=== PATIENT | male | born 1955 | race Asian ===

== ENCOUNTER 2017-01-02 22:42 | Observation (INO) | payer OTHER ==
[2017-01-02] MEDS ORDERED: SODIUM CHLORIDE 1,000 ML IV STA (23:08)
[2017-01-02] MEDS ORDERED: ONDANSETRON 4 MG/2 ML VIAL IVPB ONE (23:08)
[2017-01-02] MEDS ORDERED: HYDROmorphone HCL CARPU-JECT 1 MG/1 ML DISP.SYRIN IVPUSH ONE (23:08)
--- NOTE | 2017-01-02 23:08 | PDOC ---
[id number] is a 61 year old male with a past medical hx of hyperthyroidism, HTN, hypercholesterolemia, and diabetes who presents to the ED complaining of right flank pain radiating into his right groin for a half hour. The patient reports the pain is excruciating and he is having difficulty sitting still secondary to the pain. The patient is also complaining of urinary retention. The patient denies any fever, chills The patient denies any nausea, vomiting, diarrhea <Yuliya Huff - Last Filed: 01/03/17 01:11> <Sandy Killian - Last Filed: 01/14/17 17:09> - General Chief Complaint: Pain, Acute Stated Complaint: ABD PAIN Time Seen by Provider: 01/02/17 22:56 Past History <Yuliya uHff - Last Filed: 01/03/17 01:11> - Past Medical History Anemia: No Asthma: No Cancer: No CVA: No COPD: No CHF: No Dementia: No Diabetes: Yes GI Disorders: No Disorders: No HTN: Yes Hypercholesterolemia: Yes Liver Disease: No Suicide Attempt (Hx): No Thyroid Disease: Yes (HYPO) - Immunization History Immunization Up to Date: Yes - Psycho/Social/Smoking Cessation Hx Anxiety: No Suicidal Ideation: No Smoking Status: Yes Smoking History: Never smoked Have you smoked in the past 12 months: No Number of Cigarettes Smoked Daily: 0 If you are a former smoker, when did you quit?: 2005 Information on smoking cessation initiated: No Hx Alcohol Use: No Drug/Substance Use Hx: No Substance Use Type: None Hx Substance Use Treatment: No <Sandy Killian - Last Filed: 01/14/17 17:09> - Past Medical History Allergies/Adverse Reactions: Allergies Allergy/AdvReac Type Severity Reaction Status Date / Time No Known Allergies Allergy Verified 01/02/17 22:47 Home Medications: Ambulatory Orders Aspirin 81 mg PO DAILY #1 12/01/13 Glimepiride [Amaryl -] 4 mg PO DAILY@0700 #1 tablet 12/01/13 Carvedilol [Coreg -] 12.5 mg PO BID 08/02/14 Cholecalciferol (Vitamin D3) [D3-2000] 1,000 unit PO DAILY 08/02/14 Levothyroxine [Synthroid -] 50 mcg PO DAILY 08/02/14 Metformin HCl [Glucophage] 1,000 mg PO BID 08/02/14 Simvastatin [Zocor -] 20 mg PO HS 08/02/14 Budesonide/Formeterol Fumarate [SYMBICORT 160/4.5mcg -] 2 puff IH BID #1 inhaler 06/01/16 Tiotropium [place] [Spiriva] 1 puff IH DAILY #1 inh 06/01/16 Ibuprofen 600 mg PO Q8H #20 tablet 01/03/17 Oxycodone HCl/Acetaminophen [Oxycodone-Acetaminophen 5-325] 1 each PO Q4H #10 tablet MDD 6 01/03/17 Review of Systems - Review of Systems Able to Perform ROS?: Yes Comments:: 01/03/17 00:16 CONSTITUTIONAL: Absent: fever, chills, diaphoresis, generalized weakness, malaise, loss of appetite HEENT: Absent: rhinorrhea, nasal congestion, throat pain, throat swelling, difficulty swallowing, mouth swelling, ear pain, eye pain, visual Changes CARDIOVASCULAR: Absent: chest pain, syncope, palpitations, irregular heart rate, lightheadedness , peripheral edema RESPIRATORY: Absent: cough, shortness of breath, dyspnea with exertion, orthopnea, wheezing, stridor, hemoptysis GASTROINTESTINAL: Absent: abdominal pain, abdominal distension, nausea, vomiting, diarrhea, constipation, melena, hematochezia GENITOURINARY: +Right flank pain radiating into right groin, urinary retention. Absent: dysuria , frequency, urgency, hesitancy, hematuria, genital pain MUSCULOSKELETAL: Absent: myalgia, arthralgia, joint swelling SKIN: Absent: rash, itching, pallor HEMATOLOGIC/IMMUNOLOGIC: Absent: easy bleeding, easy bruising, lymphadenopathy, frequent infections ENDOCRINE: Absent: unexplained weight gain, unexplained weight loss, heat intolerance, cold intolerance NEUROLOGIC: Absent: headache, focal weakness or paresthesias, dizziness, unsteady gait, seizure, mental status changes, bladder or bowel incontinence PSYCHIATRIC: Absent: anxiety, depression, suicidal or homicidal ideation, hallucinations. <Yuliya Huff - Last Filed: 01/03/17 01:11> *Physical Exam - Vital Signs Last Vital Signs Temp Pulse Resp BP Pulse Ox 77 14 161/98 97 01/02/17 22:47 01/02/17 22:47 01/02/17 22:47 01/02/17 22:47 - Physical Exam Comments: 01/03/17 01:11 GENERAL: +Mild distress, unable to sit still. Well developed, well nourished. Awake and alert. HEENT: Normocephalic, atraumatic. PERRLA, EOMI. No conjunctival pallor. Sclera are non- icteric. Moist mucous membranes. Oropharynx is clear. NECK: Supple. Full ROM. No JVD. Carotid pulses 2+ and symmetric, without bruits. No thyromegaly. No lymphadenopathy. CARDIOVASCULAR: Regular rate and rhythm. No murmurs, rubs, or gallops. Distal pulses are 2+ and symmetric. PULMONARY: No evidence of respiratory distress. Lungs clear to auscultation bilaterally. No wheezing, rales or rhonchi. ABDOMINAL: Soft. Non-tender. Non-distended. No rebound or guarding. No organomegaly. Normoactive bowel sounds. MUSCULOSKELETAL Normal range of motion at all joints. No bony deformities or tenderness. No CVA tenderness. EXTREMITIES: No cyanosis. No clubbing. No edema. No calf tenderness. SKIN: Warm and dry. Normal capillary refill. No rashes. No jaundice. NEUROLOGICAL: Alert, awake, appropriate. Cranial nerves 2-12 intact. No deficits to light touch and temperature in face, upper extremities and lower extremities. No motor deficits in the in face, upper extremities and lower extremities. Normoreflexic in the upper and lower extremities. Normal speech. Toes are down-going bilaterally. Gait is normal without ataxia. PSYCHIATRIC: Cooperative. Good eye contact. Appropriate mood and affect. <Yuliya Huff - Last Filed: 01/03/17 01:11> - Vital Signs Last Vital Signs Temp Pulse Resp BP Pulse Ox 77 14 161/98 97 01/02/17 22:47 01/02/17 22:47 01/02/17 22:47 01/02/17 22:47 <Sandy Killian - Last Filed: 01/14/17 17:09> ED Treatment Course - LABORATORY CBC & Chemistry Diagram: 01/02/17 23:30 01/02/17 23:30 - ADDITIONAL ORDERS Additional order review: Laboratory Results 01/02/17 23:30 Sodium 137 Potassium 4.3 Chloride 96 L Carbon Dioxide 29 Anion Gap 12 BUN 19 H D Creatinine 1.1 D Creat Clearance w eGFR > 60 Random Glucose 223 H D Calcium 9.0 Total Bilirubin 0.5 D AST 21 D ALT 26 D Alkaline Phosphatase 87 Total Protein 7.5 Albumin 3.8 Lipase 280 01/02/17 23:30 RBC 4.40 MCV 96.0 MCHC 34.2 RDW 13.6 MPV 7.9 Neutrophils % 64.4 D Lymphocytes % 22.8 D Monocytes % 10.0 D Eosinophils % 1.8 D Basophils % 1.0 D - Medications Given in the ED: ED Medications Discontinued Medications Generic Name Dose Route Start Last Admin Trade Name Freq PRN Reason Stop Dose Admin Hydromorphone HCl 1 mg 01/02/17 23:08 01/02/17 23:43 Dilaudid Injection - IVPUSH 01/02/17 23:09 1 mg ONCE ONE Administration Sodium Chloride 1,000 mls @ 1,000 mls/hr 01/02/17 23:08 01/02/17 23:49 Normal Saline - IV 01/03/17 00:07 1,000 mls/hr ASDIR STA Administration Ondansetron HCl 4 mg 01/02/17 23:08 01/02/17 23:43 Zofran Injection IVPB 01/02/17 23:09 4 mg ONCE ONE Administration <Yuliya Huff - Last Filed: 01/03/17 01:11> - LABORATORY CBC & Chemistry Diagram: 01/03/17 08:24 01/03/17 08:24 <Sandy Killian - Last Filed: 01/14/17 17:09> *DC/Admit/Observation/Transfer - Attestations Scribe Attestion: 01/03/17 00:17 Documentation prepared by Yuliya Huff, acting as medical record retrieval specialist for Sandy Killian MD/DO. <Yuliya Huff - Last Filed: 01/03/17 01:11> <Sandy Killian - Last Filed: 01/14/17 17:09> Diagnosis at time of Disposition: Renal colic on right side, Hydronephrosis - Discharge Dispostion Disposition: HOME Condition at time of disposition: Stable - Prescriptions - Referrals
[2017-01-02] MEDS ORDERED: HYDROmorphone HCL CARPU-JECT 1 MG/1 ML DISP.SYRIN ONE (23:37)
[2017-01-02] MEDS ORDERED: ONDANSETRON 4 MG/2 ML VIAL ONE (23:41)
[2017-01-02 23:43] LABS: EOSINOPHIL 1.8 % (0-4.5); MCH 32.8 pg (25.7-33.7); MCHC 34.2 g/dl (32.0-35.9); MEAN PLT VOLUME 7.9 fl (7.5-11.1); NEUTROPHILS 64.4 % (42.8-82.8); PLATELET COUNT 278 K/MM3 (134-434); RDW 13.6 % (11.9-15.9); WHITE BLOOD COUNT 15.4 K/mm3 (4.0-10.0)
[2017-01-03 00:09] LABS: ALBUMIN 3.8 g/dl (3.4-5.0); ANION GAP 12 (8-16); CO2 29 mmol/L (21-32); CREATININE 1.1 mg/dL (0.7-1.3); GLUCOSE,RANDOM 223 mg/dL (74-106); SGPT/ALT 26 U/L (12-78)
[2017-01-03 00:11] LABS: ALK PHOS 87 U/L (45-117); BILIRUBIN,TOTAL 0.5 mg/dL (0.2-1.0); SGOT/AST 21 U/L (15-37); TOT PROT 7.5 g/dl (6.4-8.2)
[2017-01-03 04:25] LABS: PH,URINE 5.5 (5.0-8.0); URINE APPEARANCE CLEAR; URINE BILIRUBIN NEGATIVE (NEGATIVE); URINE BLOOD 3+ (NEGATIVE); URINE COLOR LT. YELLOW; URINE GLUCOSE (UA) 1+ (NEGATIVE); URINE KETONE NEGATIVE (NEGATIVE); URINE LEUK ESTERASE NEGATIVE (NEGATIVE); URINE NITRITE NEGATIVE (NEGATIVE); URINE PROTEIN NEGATIVE (NEGATIVE); URINE UROBILINOGEN 0.2 E.U/dl E.U./dl (0.2-1.0)
--- NOTE | 2017-01-03 05:01 | PDOC ---
*Physical Exam - Vital Signs Last Vital Signs Temp Pulse Resp BP Pulse Ox 77 14 161/98 97 01/02/17 22:47 01/02/17 22:47 01/02/17 22:47 01/02/17 22:47 <Kapil Reyna - Last Filed: 01/03/17 05:00> - Vital Signs Last Vital Signs Temp Pulse Resp BP Pulse Ox 77 14 161/98 97 01/02/17 22:47 01/02/17 22:47 01/02/17 22:47 01/02/17 22:47 <Melody Nicolas - Last Filed: 01/03/17 05:32> Heart Score/ECG Review - ECG Impressions Comment:: 01/03/17 05:32 NSR @73bpm Normal ECG <Melody Nicolas - Last Filed: 01/03/17 05:32> ED Treatment Course - LABORATORY CBC & Chemistry Diagram: 01/02/17 23:30 01/02/17 23:30 - ADDITIONAL ORDERS Additional order review: Laboratory Results 01/03/17 01/02/17 03:55 23:30 Sodium 137 Potassium 4.3 Chloride 96 L Carbon Dioxide 29 Anion Gap 12 BUN 19 H D Creatinine 1.1 D Creat Clearance w eGFR > 60 Random Glucose 223 H D Calcium 9.0 Total Bilirubin 0.5 D AST 21 D ALT 26 D Alkaline Phosphatase 87 Total Protein 7.5 Albumin 3.8 Lipase 280 Urine Color Lt. yellow Urine Appearance Clear Urine pH 5.5 Ur Specific [place] 1.010 Urine Protein Negative Urine Glucose (UA) 1+ H Urine Ketones Negative Urine Blood 3+ H Urine Nitrite Negative Urine Bilirubin Negative Urine Urobilinogen 0.2 e.u/dl Ur Leukocyte Esterase Negative 01/02/17 23:30 RBC 4.40 MCV 96.0 MCHC 34.2 RDW 13.6 MPV 7.9 Neutrophils % 64.4 D Lymphocytes % 22.8 D Monocytes % 10.0 D Eosinophils % 1.8 D Basophils % 1.0 D - Medications Given in the ED: ED Medications Discontinued Medications Generic Name Dose Route Start Last Admin Trade Name Freq PRN Reason Stop Dose Admin Hydromorphone HCl 1 mg 01/02/17 23:08 01/02/17 23:43 Dilaudid Injection - IVPUSH 01/02/17 23:09 1 mg ONCE ONE Administration Sodium Chloride 1,000 mls @ 1,000 mls/hr 01/02/17 23:08 01/02/17 23:49 Normal Saline - IV 01/03/17 00:07 1,000 mls/hr ASDIR STA Administration Ondansetron HCl 4 mg 01/02/17 23:08 01/02/17 23:43 Zofran Injection IVPB 01/02/17 23:09 4 mg ONCE ONE Administration <Kapil Reyna - Last Filed: 01/03/17 05:00> - LABORATORY CBC & Chemistry Diagram: 01/02/17 23:30 01/02/17 23:30 - ADDITIONAL ORDERS Additional order review: Laboratory Results 01/03/17 01/02/17 03:55 23:30 Sodium 137 Potassium 4.3 Chloride 96 L Carbon Dioxide 29 Anion Gap 12 BUN 19 H D Creatinine 1.1 D Creat Clearance w eGFR > 60 Random Glucose 223 H D Calcium 9.0 Total Bilirubin 0.5 D AST 21 D ALT 26 D Alkaline Phosphatase 87 Total Protein 7.5 Albumin 3.8 Lipase 280 Urine Color Lt. yellow Urine Appearance Clear Urine pH 5.5 Ur Specific [place] 1.010 Urine Protein Negative Urine Glucose (UA) 1+ H Urine Ketones Negative Urine Blood 3+ H Urine Nitrite Negative Urine Bilirubin Negative Urine Urobilinogen 0.2 e.u/dl Ur Leukocyte Esterase Negative 01/02/17 23:30 RBC 4.40 MCV 96.0 MCHC 34.2 RDW 13.6 MPV 7.9 Neutrophils % 64.4 D Lymphocytes % 22.8 D Monocytes % 10.0 D Eosinophils % 1.8 D Basophils % 1.0 D - RADIOLOGY Radiograph Interpretation: 01/03/17 05:03 EXAM: CT abdomen and pelvis with contrast Reviewed by Imaging bonsai culturist: FINDINGS: Lung bases are clear. The visualized cardiac chambers are normal size and configuration. There is mild right hydronephrosis with perinephric and perirenal inflammation but no obstructing stone is identified. Small intraparenchymal right renal stone is noted. Normal liver, gallbladder, pancreas, spleen, adrenal glands and left kidney. The stomach and abdominal small and large bowel are normal. There is no aortic aneurysm. There is no significant retroperitoneal lymphadenopathy. The pelvic small and large bowel are normal. The appendix is normal s. The urinary bladder is collapsed but there is a 4 mm posterior calcification, possibly intraluminal representing a recently passed stone. The prostate gland is normal. No pelvic free fluid is identified. There is no significant pelvic lymphadenopathy. Small fat containing left inguinal hernia is noted. IMPRESSION: Mild right hydronephrosis and perinephric inflammation may be due to a recently passed 4 mm stone in the bladder. Superimposed infection is not excluded. - Medications Given in the ED: ED Medications Discontinued Medications Generic Name Dose Route Start Last Admin Trade Name [place] PRN Reason Stop Dose Admin Hydromorphone HCl 1 mg 01/02/17 23:08 01/02/17 23:43 Dilaudid Injection - IVPUSH 01/02/17 23:09 1 mg ONCE ONE Administration Sodium Chloride 1,000 mls @ 1,000 mls/hr 01/02/17 23:08 01/02/17 23:49 Normal Saline - IV 01/03/17 00:07 1,000 mls/hr ASDIR STA Administration Ondansetron HCl 4 mg 01/02/17 23:08 01/02/17 23:43 Zofran Injection IVPB 01/02/17 23:09 4 mg ONCE ONE Administration <Melody Nicolas - Last Filed: 01/03/17 05:32> *DC/Admit/Observation/Transfer - Discharge Dispostion Admit: Yes <Kapil Reyna - Last Filed: 01/03/17 05:00> <Melody Nicolas - Last Filed: 01/03/17 05:32> Diagnosis at time of Disposition: Renal colic on right side, Hydronephrosis - Referrals Referrals: Myrtle River MD [Primary Care Provider] - - Patient Instructions - Post Discharge Activity
--- NOTE | 2017-01-03 05:47 | HP ---
CHIEF COMPLAINT: " Severe Back pain" PCP: Dr Deondre Crowder (Certified Hyperbaric Technologist) HISTORY OF PRESENT ILLNESS: Patient is a 61-year-old male accompanied by his son presented to the ED with the chief complaints of severe back pain. As per the patient, he started having dysuria yesterday but didn't have abdominal or back pain. Last evening at around 7pm, he started having right sided flank pain, radiating towards the right groin, 6/10 in intensity, stabbing in nature. Pain persisted for 2 hours and it was tolerable. But pain started getting worse to 20/10 in intensity, several episodes of non projectile, non bilious vomiting, containing mainly food particles. Hence, came in the ED immediately. Patient mentions he did notice red urine. He had similar episode of kidney stones in the past but the pain was not so severe requiring hospitalization. Denies fever, chills, rigors or sweating. Bowel habit normal. 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 Smoking: Quit 18 years ago, smoked for 20 years 1 pack a day Alcohol: Occasional Drugs: Denies Allergies No Known Allergies Allergy (Verified 01/02/17 22:47) HOME MEDICATIONS: Home Medications Medication Instructions Recorded Aspirin 81 mg PO DAILY #1 12/01/13 Glimepiride [Amaryl -] 4 mg PO DAILY@0700 #1 tablet 12/01/13 Carvedilol [Coreg -] 12.5 mg PO BID 08/02/14 Cholecalciferol (Vitamin D3) 1,000 unit PO DAILY 08/02/14 [D3-2000] Levothyroxine [Synthroid -] 50 mcg PO DAILY 08/02/14 Metformin HCl [Glucophage] 1,000 mg PO BID 08/02/14 Simvastatin [Zocor -] 20 mg PO HS 08/02/14 Budesonide/Formeterol Fumarate 2 puff IH BID #1 inhaler 06/01/16 [SYMBICORT 160/4.5mcg -] Tiotropium [place] [Spiriva] 1 puff IH DAILY #1 inh 06/01/16 REVIEW OF SYSTEMS CONSTITUTIONAL: Absent: fever, chills, diaphoresis, generalized weakness, malaise, loss of appetite, weight change HEENT: Absent: rhinorrhea, nasal congestion, throat pain, throat swelling, difficulty swallowing, mouth swelling, ear pain, eye pain, visual changes CARDIOVASCULAR: Absent: chest pain, syncope, palpitations, irregular heart rate, lightheadedness , peripheral edema RESPIRATORY: Absent: cough, shortness of breath, dyspnea with exertion, orthopnea, wheezing, stridor, hemoptysis GASTROINTESTINAL: Absent: abdominal pain, abdominal distension, nausea, vomiting, diarrhea, constipation, melena, hematochezia GENITOURINARY: Present: Dysuria, hematuria, flank pain, groin pain Absent: frequency, urgency, hesitancy, hematuria, genital pain MUSCULOSKELETAL: Absent: myalgia, arthralgia, joint swelling, back pain, neck pain SKIN: Absent: rash, itching, pallor HEMATOLOGIC/IMMUNOLOGIC: Absent: easy bleeding, easy bruising, lymphadenopathy, frequent infections ENDOCRINE: Absent: unexplained weight gain, unexplained weight loss, heat intolerance, cold intolerance NEUROLOGIC: Absent: headache, focal weakness or paresthesias, dizziness, unsteady gait, seizure, mental status changes, bladder or bowel incontinence PSYCHIATRIC: Absent: anxiety, depression, suicidal or homicidal ideation, hallucinations. PHYSICAL EXAMINATION Vital Signs - 24 hr 01/02/17 22:47 Pulse Rate 77 Respiratory 14 Rate Blood Pressure 161/98 O2 Sat by Pulse 97 Oximetry (%) GENERAL: Moderately built male, Awake, alert, and fully oriented, in no acute distress. HEAD: Normal with no signs of trauma. EYES: EOM intact, no pallor or icterus. EARS, NOSE, THROAT: Ears normal,. Moist mucous membranes. NECK: Normal range of motion, supple without lymphadenopathy, JVD, or masses. LUNGS: Breath sounds equal, clear to auscultation bilaterally. No wheezes, and no crackles. No accessory muscle use. HEART: Regular rate and rhythm, normal S1 and S2 without murmur, rub or gallop. ABDOMEN: Soft, nontender, not distended, normoactive bowel sounds, no guarding, no rebound, no masses. No hepatomegaly or splenomegaly. MUSCULOSKELETAL: Normal range of motion at all joints. No bony deformities or tenderness. No CVA tenderness. UPPER EXTREMITIES: 2+ pulses, warm, well-perfused. No cyanosis. No clubbing. No peripheral edema. LOWER EXTREMITIES: 2+ pulses, warm, well-perfused. No calf tenderness. No peripheral edema. NEUROLOGICAL: Cranial nerves II-XII intact. Normal speech. Normal gait. PSYCHIATRIC: Cooperative. Good eye contact. Appropriate mood and affect. SKIN: Warm, dry, normal turgor, no rashes or lesions noted, normal capillary refill. Laboratory Results - last 24 hr 01/02/17 01/02/17 01/03/17 23:30 23:30 03:55 WBC 15.4 H D RBC 4.40 Hgb 14.4 Hct 42.2 MCV 96.0 MCHC 34.2 RDW 13.6 Plt Count 278 MPV 7.9 Neutrophils % 64.4 D Lymphocytes % 22.8 D Monocytes % 10.0 D Eosinophils % 1.8 D Basophils % 1.0 D Sodium 137 Potassium 4.3 Chloride 96 L Carbon Dioxide 29 Anion Gap 12 BUN 19 H D Creatinine 1.1 D Creat Clearance w eGFR > 60 Random Glucose 223 H D Calcium 9.0 Total Bilirubin 0.5 D AST 21 D ALT 26 D Alkaline Phosphatase 87 Total Protein 7.5 Albumin 3.8 Lipase 280 Urine Color Lt. yellow Urine Appearance Clear Urine pH 5.5 Ur Specific [place] 1.010 Urine Protein Negative Urine Glucose (UA) 1+ H Urine Ketones Negative Urine Blood 3+ H Urine Nitrite Negative Urine Bilirubin Negative Urine Urobilinogen 0.2 e.u/dl Ur Leukocyte Esterase Negative ASSESSMENT/PLAN: Patient is a 61-year-old male with significant past medical history of HTN, HLD , NIDDM, diverticulitis, and hypothyroidism, kidney stones accompanied by his son presented to the ED with the chief complaints of severe back pain. # Renal colic Patient presented with excruciating flank pain radiating towards the groin since several hours associated with nausea and several episodes of vomiting On arrival, patient was Afebrile, hemodynamically stable, leukocytosis of 15.[address] scan showed 4mm stone in the bladder, detailed report as mentioned above In the ED, patient received IV Fluids, IV Dilaudid Placed in Med-Surg for observation IV NS @ 100mls/hr Pain control with IV Ketorolac IV Zofran PRN No antibiotics needed at this time Repeat CBC and CMP. # Diabetes Mellitus Finger stick glucose monitoring Insulin sliding scale # Hypothyroidism Continue Levothyroxine # Hyperlipidemia Continue Simavastatin # Hypetension Continue Carvedilol # FEN IV NS @ 100mls/hr Electrolytes to be repeated Diabetic diet # Prophylaxis For DVT: Patient ambulating and patient on observation For GI: Not indicated # Code Status: Full Code # Dispo: Placed on observation. Duration of stay 1-2 days. Illness, Investigation and Plan of care explained to the patient. He verbalized understanding. Case discussed with Dr. Boyer. Visit type - Emergency Visit Emergency Visit: Yes ED Registration Date: 01/03/17 Care time: The patient presented to the Emergency Department on the above date and was hospitalized for further evaluation of their emergent condition. - New Patient This patient is new to me today: Yes Date on this admission: 01/03/17 - Critical Care Critical Care patient: No
[2017-01-03] MEDS ORDERED: KETOROLAC TROMETHAMINE 30 MG/1 ML VIAL IVPUSH PRN (05:49)
--- NOTE | 2017-01-03 05:55 | PN ---
<SoniaradhaEdwin - Last Filed: 01/03/17 06:39> Teaching Attending Note ATTENDING PHYSICIAN STATEMENT I saw and evaluated the patient. I reviewed the resident's note and discussed the case with the resident. I agree with the resident's findings and plan as documented. SUBJECTIVE: The patient is a 61 year old male with a past medical history of hyperthyroidism , HTN, hypercholesterolemia, kidney stones and diabetes who presented to the emergency department for further evaluation of right flank pain radiating into his right groin since yesterday. The patient reported associated urinary retention. The patient noted that he has had kidney stones 2 times before most recently 2-3 years ago. The patient denied any fever, chills, nausea, vomiting, diarrhea OBJECTIVE: Vital Signs: Last Vital Signs Temp Pulse Resp BP Pulse Ox 77 14 161/98 97 01/02/17 22:47 01/02/17 22:47 01/02/17 22:47 01/02/17 22:47 Physical Exam: GENERAL: Awake, alert, and fully oriented, in no acute distress HEENT: Atraumatic. PERRLA, EOMI. Moist mucosa. No JVD LUNGS: No distress, speaks full sentences, clear to auscultation bilaterally HEART: Regular rate and rhythm, normal S1 and S2, no murmurs, rubs or gallops, peripheral pulses normal and equal bilaterally. ABDOMEN: Soft, nontender, normoactive bowel sounds. No guarding, no rebound. No masses EXTREMITIES: Normal inspection, Normal range of motion, no edema. No clubbing or cyanosis. NEUROLOGICAL: Cranial nerves II through XII grossly intact. Normal speech, normal gait, no focal sensorimotor deficits SKIN: Warm, Dry, normal turgor, no rashes or lesions noted. Labs: CBCD WBC 15.4 K/mm3 (4.0-10.0) H D 01/02/17 23:30 RBC 4.40 M/mm3 (4.00-5.60) 01/02/17 23:30 Hgb 14.4 GM/dL (11.7-16.9) 01/02/17 23:30 Hct 42.2 % (35.4-49) 01/02/17 23:30 MCV 96.0 fl (80-96) 01/02/17 23:30 MCHC 34.2 g/dl (32.0-35.9) 01/02/17 23:30 RDW 13.6 % (11.9-15.9) 01/02/17 23:30 Plt Count 278 K/MM3 (134-434) 01/02/17 23:30 MPV 7.9 fl (7.5-11.1) 01/02/17 23:30 CMP Sodium 137 mmol/L (136-145) 01/02/17 23:30 Potassium 4.3 mmol/L (3.5-5.1) 01/02/17 23:30 Chloride 96 mmol/L (98-107) L 01/02/17 23:30 Carbon Dioxide 29 mmol/L (21-32) 01/02/17 23:30 Anion Gap 12 (8-16) 01/02/17 23:30 BUN 19 mg/dL (7-18) H D 01/02/17 23:30 Creatinine 1.1 mg/dL (0.7-1.3) D 01/02/17 23:30 Creat Clearance w eGFR > 60 (>60) 01/02/17 23:30 Calcium 9.0 mg/dL (8.5-10.1) 01/02/17 23:30 Total Bilirubin 0.5 mg/dL (0.2-1.0) D 01/02/17 23:30 AST 21 U/L (15-37) D 01/02/17 23:30 ALT 26 U/L (12-78) D 01/02/17 23:30 Alkaline Phosphatase 87 U/L (45-117) 01/02/17 23:30 Total Protein 7.5 g/dl (6.4-8.2) 01/02/17 23:30 Albumin 3.8 g/dl (3.4-5.0) 01/02/17 23:30 Imaging: EXAM: CT abdomen and pelvis with contrast IMAGES: 502 INDICATION: Right flank pain with urinary retention DATE OF SERVICE: 2017-01-03 02:32:35.0 COMPARISON : B. FINDINGS: Lung bases are clear. The visualized cardiac chambers are normal size and configuration. There is mild right hydronephrosis with perinephric and perirenal inflammation but no obstructing stone is identified. Small intraparenchymal right renal stone is noted. Normal liver, gallbladder, pancreas, spleen, adrenal glands and left kidney. The stomach and abdominal small and large bowel are normal. There is no aortic aneurysm. There is no significant retroperitoneal lymphadenopathy. The pelvic small and large bowel are normal. The appendix is normal s. The urinary bladder is collapsed but there is a 4 mm posterior calcification, possibly intraluminal representing a recently passed stone. The prostate gland is normal. No pelvic free fluid is identified. There is no significant pelvic lymphadenopathy. Small fat containing left inguinal hernia is noted. IMPRESSION: Mild right hydronephrosis and perinephric inflammation may be due to a recently passed 4 mm stone in the bladder. Superimposed infection is not excluded. THIS DOCUMENT HAS BEEN ELECTRONICALLY SIGNED Joshua Rodriguez MD ASSESSMENT AND PLAN : The patient is a 61 year old male with a past medical history of hyperthyroidism , HTN, hypercholesterolemia, kidney stones, and diabetes who presented to the emergency department for evaluation of right flank pain radiating into his right groin since yesterday. 1. Renal Colic -4 mm stone noted in bladder -IVF -Toradol Admit to observation. Documentation prepared by Edwin Traylor, acting as medical aide for Dr. Fab Boyer MD. <Fab Boyer - Last Filed: 01/03/17 06:46> Teaching Attending Note Name of Resident: Piedad Miller ATTENDING PHYSICIAN STATEMENT I saw and evaluated the patient. I reviewed the resident's note and discussed the case with the resident. I agree with the resident's findings and plan as documented.
[2017-01-03] MEDS: SODIUM CHLORIDE 1,000 ML IV SCH ×2 (06:15→13:11)
[2017-01-03] MEDS ORDERED: ONDANSETRON 4 MG/2 ML VIAL IVPB PRN (06:25)
[2017-01-03 06:35] LABS: URINE MUCUS RARE; URINE RBC 132 /hpf (0-3); URINE WBC 2 /hpf (3-5)
[2017-01-03] MEDS: INSULIN SLIDING SCALE (NOVOLOG) 1 VIAL SQ SCH ×3 (08:10→17:38)
[2017-01-03] MEDS ORDERED: INSULIN REGULAR HUMAN 100 UNITS/ML *VIAL ONE (08:13)
[2017-01-03 08:38] LABS: BASOPHIL 0.8 % (0-2.0); EOSINOPHIL 1.2 % (0-4.5); MCH 32.9 pg (25.7-33.7); MCHC 34.1 g/dl (32.0-35.9); MEAN CELL VOLUME 96.5 fl (80-96); MEAN PLT VOLUME 7.3 fl (7.5-11.1); NEUTROPHILS 55.5 % (42.8-82.8); PLATELET COUNT 230 K/MM3 (134-434); RDW 13.5 % (11.9-15.9)
[2017-01-03] MEDS ORDERED: LEVOTHYROXINE NA 50 MCG TABLET (FP) PO SCH (09:00)
[2017-01-03 09:08] LABS: ALBUMIN 3.6 g/dl (3.4-5.0); ANION GAP 7 (8-16); BILIRUBIN,TOTAL 0.6 mg/dL (0.2-1.0); CALCIUM 8.3 mg/dL (8.5-10.1); CO2 31 mmol/L (21-32); CREATININE 0.9 mg/dL (0.7-1.3); GLUCOSE,RANDOM 128 mg/dL (74-106)
[2017-01-03 09:09] LABS: SGOT/AST 18 U/L (15-37); SGPT/ALT 29 U/L (12-78)
[2017-01-03 09:10] LABS: ALK PHOS 77 U/L (45-117); TOT PROT 7.2 g/dl (6.4-8.2)
[2017-01-03] MEDS ORDERED: TIOTROPIUM BROMIDE 18 MCG/INH (DEVICE W/ 5 CAPSULES) IH SCH (10:00)
[2017-01-03] MEDS ORDERED: CHOLECALCIFEROL (VITAMIN D3) 1,000 UNIT TABLET (FP) PO SCH (10:00)
[2017-01-03] MEDS ORDERED: ASPIRIN 81 MG CHEWABLE TABLETS PO SCH (10:00)
[2017-01-03] MEDS ORDERED: BUDESONIDE/FORMETEROL FUMARATE 160/4.5 mcg INHALER IH SCH (10:00)
[2017-01-03] MEDS ORDERED: CARVEDILOL 12.5 MG TABLET (FP) PO SCH (10:00)
[2017-01-03] MEDS ORDERED: PT OWN MED DRAWER 7, Y5N ONE (10:25)
[2017-01-03 10:37] VITALS: BMI 29.9
--- NOTE | 2017-01-03 13:21 | EKG ---
Test Reason : Blood Pressure : / mmHG Vent. Rate : 073 BPM Atrial Rate : 073 BPM P-R Int : 168 ms QRS Dur : 088 ms QT Int : 394 ms P-R-T Axes : 058 052 052 degrees QTc Int : 434 ms NORMAL SINUS RHYTHM NORMAL ECG WHEN COMPARED WITH ECG OF 24-MAY-2016 10:03, PREMATURE ATRIAL COMPLEXES ARE NO LONGER PRESENT VENT. RATE HAS DECREASED BY 46 BPM NON-SPECIFIC CHANGE IN ST SEGMENT IN LATERAL LEADS Confirmed by YEFRI AMOS MD ([id number]) on 01/03/2017 1:20:53 PM Referred By: Confirmed By:YEFRI AMOS MD
[2017-01-03] MEDS ORDERED: TAMSULOSIN HCL 0.4 MG CAP.ER.24H (FP) PO ONE (15:06)
--- NOTE | 2017-01-03 15:22 | PN ---
Physical Exam: SUBJECTIVE: Patient seen and examined. C/o mild pain to right groin. No nausea or vomiting. OBJECTIVE: Vital Signs - 24 hr 3 01/02/17 01/03/17 01/03/17 22:47 06:38 07:05 Temperature Pulse Rate 77 Pulse Rate [ 75 Right Radial] Respiratory 14 18 Rate Blood Pressure 161/98 Blood Pressure 116/58 [Right Arm] O2 Sat by Pulse 97 98 95 Oximetry (%) 3 01/03/17 01/03/17 01/03/17 08:00 08:03 13:38 Temperature 97.5 F L 97.9 F Pulse Rate 64 68 Pulse Rate [ 66 Right Radial] Respiratory 20 18 20 Rate Blood Pressure 117/75 121/73 Blood Pressure 109/55 [Right Arm] O2 Sat by Pulse 95 Oximetry (%) GENERAL: The patient is awake, alert, and fully oriented, in no acute distress. HEAD: Normal with no signs of trauma. EYES: PERRL, extraocular movements intact, sclera anicteric, conjunctiva clear. No ptosis. ENT: Ears normal, nares patent, oropharynx clear without exudates, moist mucous membranes. NECK: Trachea midline, full range of motion, supple. LUNGS: Breath sounds equal, clear to auscultation bilaterally, no wheezes, no crackles, no accessory muscle use. HEART: Regular rate and rhythm, S1, S2 without murmur, rub or gallop. ABDOMEN: Soft, nondistended, normoactive bowel sounds, no guarding, no rebound, no hepatosplenomegaly, no masses. mild tenderness RLQ, groin area. Mild right CVA tenderness EXTREMITIES: 2+ pulses, warm, well-perfused, no edema. NEUROLOGICAL: Cranial nerves II through XII grossly intact. Normal speech, gait not observed. PSYCH: Normal mood, normal affect. SKIN: Warm, dry, normal turgor, no rashes or lesions noted Laboratory Results - last 24 hr 3 01/03/17 01/03/17 01/03/17 08:09 08:24 08:24 WBC 10.0 D RBC 4.39 Hgb 14.4 Hct 42.3 MCV 96.5 H MCHC 34.1 RDW 13.5 Plt Count 230 MPV 7.3 L Neutrophils % 55.5 Lymphocytes % 31.6 D Monocytes % 10.9 H Eosinophils % 1.2 Basophils % 0.8 Sodium 139 Potassium 4.0 Chloride 101 Carbon Dioxide 31 Anion Gap 7 L BUN 13 D Creatinine 0.9 Creat Clearance w eGFR > 60 POC Glucometer [phone] Random Glucose 128 H D Calcium 8.3 L Total Bilirubin 0.6 AST 18 ALT 29 Alkaline Phosphatase 77 Total Protein 7.2 Albumin 3.6 Active Medications 3 Generic Name Dose Route Start Last Admin Trade Name Freq PRN Reason Stop Dose Admin Aspirin 81 mg 01/03/17 10:00 01/03/17 10:29 Asa - PO 81 mg DAILY OLGA Administration Atorvastatin Calcium 10 mg 01/03/17 22:00 Lipitor - PO HS OLGA Budesonide/Formoterol Fumarate 2 puff 01/03/17 10:00 01/03/17 10:30 Symbicort 160/4.5mcg - IH 2 puff BID OLGA Administration Carvedilol 12.5 mg 01/03/17 10:00 01/03/17 10:29 Coreg - PO 12.5 mg BID OLGA Administration Cholecalciferol 1,000 unit 01/03/17 10:00 01/03/17 10:29 Vitamin D3 - PO 1,000 unit DAILY OLGA Administration Sodium Chloride 1,000 mls @ 100 mls/hr 01/03/17 06:00 01/03/17 13:11 Normal Saline - IV 100 mls/hr ASDIR OLGA Administration Insulin Aspart 1 vial 01/03/17 07:00 01/03/17 12:12 Novolog Vial Sliding Scale - SQ Not Given ACHS [facility] Protocol Ketorolac Tromethamine 30 mg 01/03/17 05:49 01/03/17 06:15 Toradol Injection - IVPUSH 01/08/17 05:48 30 mg Q6H PRN Administration PAIN Levothyroxine Sodium 50 mcg 01/03/17 09:00 01/03/17 10:29 Synthroid - PO 50 mcg DAILY@0700 OLGA Administration Ondansetron HCl 4 mg 01/03/17 06:25 Zofran Injection IVPB Q4H PRN NAUSEA AND/OR VOMITING Tiotropium [place] 1 puff 01/03/17 10:00 01/03/17 10:30 Spiriva - IH 1 puff DAILY OLGA Administration ASSESSMENT/PLAN: 61yM with PMH TIA, HTN, HLD, NIDDM, diverticulitis, hypothyroidism, Kidney stones presented with severe right back pain radiating to groin and RLQ. Pt with 4mm stone in bladder on CT scan. Admitted for observation. Renal colic - pain significantly improved - stone likely passed into bladder. No stone observed in urine / hunt - remove FC for voiding trial - strain all urine Urinary retention - flomax 0.4mg x 1 - will remove hunt cath for voiding trial, if able to void and pain ok, may be DC home with O/P urology f/u - if unable to void, will replace FC and obtain urology consult inpatient HTN - cont home carvedilol. BP well controlled. Hyperlipidemia - home zocor changed to formulary lipitor NIDDM - home oral hypoglycemics on hold - cont novolog SS and BGM hypothyroidism - cont synthroid FEN - d/c IVF, tolerating po - BMP stable, repeat in am if still here - diabetic diet Dispo: pt continues to require inpatient observation. Visit type - Emergency Visit Emergency Visit: Yes ED Registration Date: 01/03/17 Care time: The patient presented to the Emergency Department on the above date and was hospitalized for further evaluation of their emergent condition. - New Patient This patient is new to me today: Yes Date on this admission: 01/03/17 - Critical Care Critical Care patient: No - Discharge Referral Referred to [facility] Med P.C.: No
[2017-01-03 17:42] VITALS: BP 120/64; PULSE 72; TEMP 98.2
[2017-01-03] MEDS ORDERED: ATORVASTATIN CA 10 MG TABLET (FP) PO SCH (22:00)
--- NOTE | 2017-01-08 23:44 | DS ---
Physical Exam: SUBJECTIVE: Patient seen and examined; see progress note for 01/03/17. reports feeling much better. Nurse reports pt voided 400cc. Pt feeling better, pain improved. LABS Laboratory Tests 3 01/02/17 01/02/17 01/03/17 23:30 23:30 03:55 WBC 15.4 H D RBC 4.40 Hgb 14.4 Hct 42.2 MCV 96.0 MCHC 34.2 RDW 13.6 Plt Count 278 MPV 7.9 Neutrophils % 64.4 D Lymphocytes % 22.8 D Monocytes % 10.0 D Eosinophils % 1.8 D Basophils % 1.0 D Sodium 137 Potassium 4.3 Chloride 96 L Carbon Dioxide 29 Anion Gap 12 BUN 19 H D Creatinine 1.1 D Creat Clearance w eGFR > 60 POC Glucometer Random Glucose 223 H D Calcium 9.0 Total Bilirubin 0.5 D AST 21 D ALT 26 D Alkaline Phosphatase 87 Total Protein 7.5 Albumin 3.8 Lipase 280 Urine Color Lt. yellow Urine Appearance Clear Urine pH 5.5 Ur Specific [place] 1.010 Urine Protein Negative Urine Glucose (UA) 1+ H Urine Ketones Negative Urine Blood 3+ H Urine Nitrite Negative Urine Bilirubin Negative Urine Urobilinogen 0.2 e.u/dl Ur Leukocyte Esterase Negative Urine RBC 132 Urine WBC 2 Ur Epithelial Cells Rare Urine Mucus Rare 3 01/03/17 01/03/17 01/03/17 08:09 08:24 08:24 12:10 WBC 10.0 D RBC 4.39 Hgb 14.4 Hct 42.3 MCV 96.5 H MCHC 34.1 RDW 13.5 Plt Count 230 MPV 7.3 L Neutrophils % 55.5 Lymphocytes % 31.6 D Monocytes % 10.9 H Eosinophils % 1.2 Basophils % 0.8 Sodium 139 Potassium 4.0 Chloride 101 Carbon Dioxide 31 Anion Gap 7 L BUN 13 D Creatinine 0.9 Creat Clearance w eGFR > 60 POC Glucometer [phone] Random Glucose 128 H D Calcium 8.3 L Total Bilirubin 0.6 AST 18 ALT 29 Alkaline Phosphatase 77 Total Protein 7.2 Albumin 3.6 Lipase Urine Color Urine Appearance Urine pH Ur Specific [place] Urine Protein Urine Glucose (UA) Urine Ketones Urine Blood Urine Nitrite Urine Bilirubin Urine Urobilinogen Ur Leukocyte Esterase Urine RBC Urine WBC Ur Epithelial Cells Urine Mucus HOSPITAL COURSE: Date of Admission:01/03/17 Date of Discharge: 01/08/17 This is a 61yM with past medical history of TIA, HTN, HLD, NIDDM, diverticulitis , hypothyroidism, Kidney stones who presented with severe right back pain radiating to groin and RLQ. Pt with 4mm stone in bladder on CT scan. He was admitted for observation. He had a hunt catheter placed in the ED for a report of urinary retention. He reports no recurrence of severe pain that sent him to the ED. Hunt catheter was removed and pt voided without difficulty. Pt DC home with pain medications and advised outpatient f/u with urology. Minutes to complete discharge: 45 Discharge Summary Reason For Visit: RENAL COLIC ON RIGHT SIDE HYDRONEPHROSIS Current Active Problems Bronchitis (Acute) Chest pain (Acute) Cough (Acute) Diabetes mellitus (Acute) HLD (hyperlipidemia) (Acute) HTN (hypertension) (Acute) Reactive airway disease (Acute) SOB (shortness of breath) (Acute) Travel sickness (Acute) Condition: Stable - Instructions Diet, Activity, Other Instructions: Return to the ED for new, worsening or persistent symptoms. Follow up with urology within the NEXT WEEK Strain all urine Referrals: Myrtle River MD [Primary Care Provider] - 2 Weeks Eliezer Rutherford MD., MD [Staff Physician] - (Urology--follow up in the next week) Disposition: HOME - Home Medications Comprehensive Discharge Medication List: Ambulatory Orders Aspirin 81 mg PO DAILY #1 12/01/13 Glimepiride [Amaryl -] 4 mg PO DAILY@0700 #1 tablet 12/01/13 Carvedilol [Coreg -] 12.5 mg PO BID 08/02/14 Cholecalciferol (Vitamin D3) [D3-2000] 1,000 unit PO DAILY 08/02/14 Levothyroxine [Synthroid -] 50 mcg PO DAILY 08/02/14 Metformin HCl [Glucophage] 1,000 mg PO BID 08/02/14 Simvastatin [Zocor -] 20 mg PO HS 08/02/14 Budesonide/Formeterol Fumarate [SYMBICORT 160/4.5mcg -] 2 puff IH BID #1 inhaler 06/01/16 Tiotropium [place] [Spiriva] 1 puff IH DAILY #1 inh 06/01/16 Ibuprofen 600 mg PO Q8H #20 tablet 01/03/17 Oxycodone HCl/Acetaminophen [Oxycodone-Acetaminophen 5-325] 1 each PO Q4H #10 tablet MDD 6 01/03/17 This patient is new to me today: Yes Date on this admission: 01/03/17 Emergency Visit: Yes ED Registration Date: 01/03/17 Care time: The patient presented to the Emergency Department on the above date and was hospitalized for further evaluation of their emergent condition. Critical Care patient: No - Discharge Referral Referred to [facility] Med P.C.: No
== END 2017-01-03 18:13 | disposition home or self-care (01) ==
LOC: JER 22:42 → JERBED 01-03 05:01 → INTOOBSV 01-03 05:01 → UNDOADMOB 01-03 05:01 → JERBED 01-03 05:54 → UNDOADMIN 01-03 06:38 → J7W 01-03 08:40 → JERBED 01-03 08:40
PROVIDERS: ADMIT Internal Medicine; ATTEND Nurse Practitioner Family
PROC: 3E033NZ Introduction of Analgesics, Hypnotics, Sedatives into Peripheral Vein, Percutaneous Approach (ICD-10-PCS; principal; 2017-01-03)
PROC: 3E0333Z Introduction of Anti-inflammatory into Peripheral Vein, Percutaneous Approach (ICD-10-PCS; 2017-01-03)
PROC: 3E033GC Introduction of Other Therapeutic Substance into Peripheral Vein, Percutaneous Approach (ICD-10-PCS; 2017-01-03)
PROC: 3E0337Z Introduction of Electrolytic and Water Balance Substance into Peripheral Vein, Percutaneous Approach (ICD-10-PCS; 2017-01-03)
DX: N23 Unspecified renal colic (principal); N21.0 Calculus in bladder; N13.30 Unspecified hydronephrosis; E11.9 Type 2 diabetes mellitus without complications; E78.00 Pure hypercholesterolemia, unspecified; E05.90 Thyrotoxicosis, unspecified without thyrotoxic crisis or storm; I10 Essential (primary) hypertension; Z87.442 Personal history of urinary calculi
CPT/HCPCS: 36415; 74177-TC; 80053; 81003; 81015; 83690; 85025; 93005; 93010; 99283-25; G0378